=== PATIENT | female | born 1970 | race Caucasian/White ===

== ENCOUNTER 2016-05-11 10:30 | Outpatient (CLI) | payer OTHER ==
[2014-11-09 15:47] VITALS: BP 115/66
== END 2016-05-11 10:33 ==
LOC: LABRHC 10:30
PROVIDERS: ATTEND Physician Assistant
DX: N89.8 Other specified noninflammatory disorders of vagina (principal); R30.0 Dysuria
CPT/HCPCS: 87088; 87491; 87591

== ENCOUNTER → 2017-02-20 | Outpatient (CLI) | payer OTHER ==
[2014-11-09 15:47] VITALS: BP 115/66
== END ==
LOC: LABRHC 16:05
PROVIDERS: ATTEND Physician Assistant
DX: Z20.2 Contact with and (suspected) exposure to infections with a predominantly sexual mode of transmission (principal); N39.0 Urinary tract infection, site not specified
CPT/HCPCS: 87086; 87186; 87491; 87591

== ENCOUNTER 2017-03-22 16:51 | Outpatient (CLI) | payer OTHER ==
[2014-11-09 15:47] VITALS: BP 115/66
== END 2017-03-22 16:52 ==
LOC: LABRHC 16:51
PROVIDERS: ATTEND Physician Assistant
DX: R30.0 Dysuria (principal)
CPT/HCPCS: 87086

== ENCOUNTER 2018-04-12 13:19 | Outpatient (CLI) | payer OTHER ==
[2014-11-09 15:47] VITALS: BP 115/66
== END 2018-04-12 14:11 ==
LOC: LABRHC 13:19
PROVIDERS: ATTEND Physician Assistant
DX: N89.8 Other specified noninflammatory disorders of vagina (principal); R30.0 Dysuria
CPT/HCPCS: 87086; 87491; 87591